=== PATIENT | female | born 1965 | race Two or more races ===

== ENCOUNTER 2021-02-26 07:16 | Outpatient (CLI) | payer OTHER | END 2021-02-26 07:32 | disposition home or self-care (01) | LOC: MAMO-SONO 07:16 | PROVIDERS: ATTEND Obstetrics & Gynecology | DX: N64.4 Mastodynia (principal) ==

== ENCOUNTER 2021-02-26 09:05 | Outpatient (CLI) | payer OTHER | END 2021-02-26 09:06 | disposition home or self-care (01) | LOC: LAB 09:05 | PROVIDERS: ATTEND Obstetrics & Gynecology | DX: E78.49 Other hyperlipidemia (principal); D64.89 Other specified anemias; N39.0 Urinary tract infection, site not specified; M25.50 Pain in unspecified joint; R73.09 Other abnormal glucose; E56.8 Deficiency of other vitamins; E55.9 Vitamin D deficiency, unspecified; D51.8 Other vitamin B12 deficiency anemias; Z12.11 Encounter for screening for malignant neoplasm of colon ==

== ENCOUNTER 2021-02-27 11:26 | Outpatient (CLI) | payer OTHER | END 2021-02-27 11:30 | disposition home or self-care (01) | LOC: LAB 11:26 | PROVIDERS: ATTEND Obstetrics & Gynecology | DX: E07.9 Disorder of thyroid, unspecified (principal); N39.0 Urinary tract infection, site not specified; M25.50 Pain in unspecified joint ==